=== PATIENT | female | born 1975 | race African-American/Black ===

== ENCOUNTER 2020-02-20 01:19 | Emergency (ER) | payer OTHER ==
[~2020-02-20] VITALS: Ht 154.9 cm; Wt 52.2 kg
--- NOTE | ~2020-02-20 | EMS ---
[address] [address] EMS Patient Care Report Name: DURGA TRAN Room #: REG [facility]US[facility]#: [id number] Admission: 02/20/20 Attend Phys: Discharge: Date of : 73 Report #: [id number] THIS REPORT FOR: //name// Report Transmitted: 02/20/2020 01:08 EMS Care Summary [place], [place]/[facility] Incident [id number] @ 02/20/2020 00:37 Incident Location [address] [place] [address] Patient DURGA TRAN Female, 44 Years 1975 Patient Address [address] [place] [address] Patient History Hyperlipidemia, Patient Allergies Demerol, Patient Medications Atorvastatin, Prochlorperazine, Bentyl, Chief Complaint VOMITED Disposition Transported No Lights/[place] Dispatch Reason Sick Person Transported To [facility] Narrative DISPATCHED EMERGENCY ON A SICK. [place] [employer] ON SCENE UPON ARRIVAL. PT STATES SHE WAS SEEN TODAY IN THE ER FOR ABD CRAMPS AND SHE WAS PRESCRIBED DICYCLOMINE AND AFTER TAKING THE MEDICATION IT MADE HER VOMIT AND SHAKE. STATES THAT AFTER THIS HAPPENED SHE YELLED FOR HER MOTHER. DENIES ANY COVID SYMPTOMS. PT'S MOTHER [address] [address] EMS Patient Care Report Name: DURGA TRAN Room #: REG Nilda#: [id number] Admission: 02/20/20 Attend Phys: Discharge: Date of : 73 Report #: [id number] SEEMS CONCERNED AND STATES THAT PT WAS SHAKING HER ARMS. GCS 15 AND A/OX4. CONSENTS FOR TX AND TRANSPORTATION. ASSISTED WITHOUT INCIDENT TO STRETCHER IN AMBULANCE. V/S'S OBTAINED. TRANSPORTED TO [facility]. REASSESSED ENROUTE. NO TREMORS. DENIES BEING NAUSEOUS. V/S'S OBTAINED. REPORT CALLED TO HOSPITAL. MOVED WITHOUT INCIDENT TO TRIAGE CHAIR VIA STRETCHER. PT CARE TRANSFERRED TO ED RN. Initial Vitals @01:01P: 109,R: 18,BP: 95/80,Pain: 0/10,GCS: 15,SpO2: 94,Revised Trauma: 12, @01:11P: 71,R: 16,BP: 120/79,Pain: 0/10,GCS: 15,CO: 1,SpO2: 95,Revised Trauma: 12, Assessments @00:59MENTAL:Person Oriented,Time Oriented,Event Oriented,Place Oriented,SKIN:HEENT:Eyes: Right Pupil: 4-mm,Eyes: Left Pupil: 4-mm,Head/Face: No Abnormalities,Neck/Airway: No Abnormalities,LUNG SOUNDS:General: Vomiting,General: Diarrhea,ABDOMEN:General: Vomiting,General: Diarrhea,PELVIS//GI:EXTREMITIES:Capillary Refill: Left Upper: < 2 Sec,Capillary Refill: Right Lower: < 2 Sec,Capillary Refill: Left Lower: < 2 Sec,Capillary Refill: Right Upper: < 2 Sec,Left Arm: No Abnormalities,Right Arm: No Abnormalities,Left Leg: No Abnormalities,Right Leg: No Abnormalities,PULSE:Radial: 2+ Normal,NEURO:Tremors, Impression Vomiting Procedures @00:59ALS AssessmentResponse: UnchangedSucceeded@01:01StretcherResponse: Unchanged Timeline 00:34,Call Received 00:34,Dispatch Notified 00:37,Dispatched 00:38,En Route 00:51,On Scene 00:58,At Patient 00:59,ALS Assessment,Response: UnchangedSucceeded, 01:01,Stretcher,Response: Unchanged 01:01,BP: 95/80 M,PULSE: 109,RR: 18 R,SPO2: 94 Ox,ETCO2: ,BG: ,PAIN: 0,GCS: 15, 01:05,Depart Scene 01:11,BP: 120/79 M,PULSE: 71,RR: 16 R,SPO2: 95 Ox,ETCO2: ,BG: ,PAIN: 0,GCS: 15, 01:17,At Destination 01:40,Call Closed Disclaimer [address] [address] EMS Patient Care Report Name: MARCDURGA J Room #: REG Nilda#: [id number] Admission: 02/20/20 Attend Phys: Discharge: Date of : 73 Report #: [id number] v1.1 Copyright 2020 [employer] This EMS Care Summary contains data elements from the applicable legal record (which may be displayed differently). It is designed to provide pertinent information for the following purposes: continuity of care, clinical quality, and state data reporting. The complete legal record is available to ED staff and administrators of the receiving hospital in [facility]'s Patient Tracker. All data is provided "as is."
[~2020-02-20 01:19] MED LIST: ALBUTEROL NEB; VENTOLIN17 GM INH; XOPENEX0.31 MG/3 IH
[2020-02-20 02:58] LABS: HEMATOCRIT 43.2 % (37.0-47.0); HEMOGLOBIN 14.2 gm/dL (12.0-15.0); MCH 27.2 pg (26.0-34.0); MCV 82.6 fL (80.0-100.0); RBC 5.23 mil/uL (4.20-5.00); RDW 15.1 % (10.5-14.5); WBC 12.2 thou/uL (4.0-11.0)
[2020-02-20 03:03] LABS: CALCIUM 9.4 mg/dL (8.5-10.1); CREATININE 0.9 mg/dL (0.6-1.0); POTASSIUM 3.2 mmol/L (3.5-5.1)
[2020-02-20 03:10] LABS: ALBUMIN 3.6 g/dL (3.4-5.0); DIRECT BILIRUBIN < 0.1 mg/dL (<0.1-0.2); LIPASE 94 U/L (73-393); SGOT 12 U/L (15-37); SGPT 14 U/L (30-65); TOTAL BILIRUBIN 0.4 mg/dL (0.2-1.0); TOTAL PROTEIN 8.2 g/dL (6.4-8.2)
[2020-02-20] MEDS ORDERED: NAPROSYN500 M1 PO (04:13)
[2020-02-20 04:16] VITALS: BP 156/84
== END 2020-02-20 04:29 | disposition home or self-care (01) ==
LOC: ER 01:19
PROVIDERS: Emergency Medicine
DX: R10.9 Unspecified abdominal pain (principal); R25.1 Tremor, unspecified; R11.0 Nausea; J45.909 Unspecified asthma, uncomplicated; F17.210 Nicotine dependence, cigarettes, uncomplicated; Z98.51 Tubal ligation status; Z98.890 Other specified postprocedural states; Z79.899 Other long term (current) drug therapy; Z88.8 Allergy status to other drugs, medicaments and biological substances